=== PATIENT | male | born 2000 | race Two or more races ===

== ENCOUNTER 2024-09-12 16:58 | Emergency (ER) | payer OTHER ==
[2024-09-12 17:09] VITALS: BP 121/55; PULSE 74; RESP 18; TEMP 98; BMI 20.7
[2024-09-12] MEDS ORDERED: IBUPROFEN 400 MG TABLET (FP) PO ONE (17:30)
[2024-09-12] MEDS: IBUPROFEN 400 MG TABLET (FP) PO ONE (17:52)
== END 2024-09-12 18:52 | disposition home or self-care (01) ==
LOC: JERFT 16:58
DX: M54.2 Cervicalgia (principal); M25.571 Pain in right ankle and joints of right foot; M25.511 Pain in right shoulder; V49.50XA Passenger injured in collision with unspecified motor vehicles in traffic accident, initial encounter; Y92.410 Unspecified street and highway as the place of occurrence of the external cause
CPT/HCPCS: 73030-TC-RT-FY; 73610-TC-RT-FY; 73630-TC-RT-FY; 99283-25